=== PATIENT | male | born 1985 | race Caucasian/White ===

== ENCOUNTER 2017-12-21 13:59 | Outpatient (CLI) | payer OTHER ==
--- NOTE | 2017-12-21 14:34 | XRAY Report ---
Procedure Date: 12/21/2017 Accession Number: [id number] / [id number] Procedure: XR - Hip w/Pelvis 2-3V LT CPT Code: FULL RESULT: EXAM: LEFT HIP AND PELVIS RADIOGRAPHY EXAM DATE: 12/21/2017 02:14 PM. HISTORY: LEFT HIP PAIN. COMPARISONS: None. TECHNIQUE: 1 view of the pelvis and 1 view of the hip. FINDINGS: Bones: Normal. No fracture or bone lesion. Joints: The bilateral hip, pubis symphysis, and sacroiliac joints are preserved. Soft Tissues: Normal. No soft tissue swelling. IMPRESSION: No fracture or subluxation. [facility]
== END 2017-12-21 14:00 | disposition home or self-care (01) ==
LOC: DI 13:59
PROVIDERS: ATTEND Nurse Practitioner Family
DX: M25.552 Pain in left hip (principal)

== ENCOUNTER 2019-01-16 12:56 | Outpatient (CLI) | payer OTHER ==
--- NOTE | 2019-01-17 10:29 | XRAY Report ---
Reason: LOW BACK PAIN Procedure Date: 01/16/2019 Accession Number: [id number] / [id number] Procedure: XR - Lumbar Spine 2 View CPT Code: FULL RESULT: EXAM: LUMBOSACRAL SPINE RADIOGRAPHY EXAM DATE: 01/16/2019 01:08 PM. CLINICAL HISTORY: LOW BACK PAIN. COMPARISONS: XR LUMBAR SPINE 2 OR 3 VIEWS 12/09/2008 10:18 PM. TECHNIQUE: 2 views. T12 vertebral body was only partially imaged. FINDINGS: Alignment: Normal. No spondylolisthesis or scoliosis. Bones: Five [id number]-[id number] lumbar vertebral bodies are present. No fractures or bone lesions. Disks: Normal. Disk heights are maintained. Facets: No degenerative changes. Sacroiliac Joints: Unremarkable. Soft Tissues: Previously noted left posterior radiopaque foreign body is no longer seen. The visualized bowel gas pattern is normal. IMPRESSION: Normal lumbar spine radiography. [facility]
== END 2019-01-16 12:57 | disposition home or self-care (01) ==
LOC: DI 12:56
PROVIDERS: ATTEND Nurse Practitioner Family
DX: M54.5 Low back pain (principal)
CPT/HCPCS: 72100